=== PATIENT | female | born 1960 | race African-American/Black ===

== ENCOUNTER 2017-05-09 21:49 | Emergency (ER) | payer OTHER, MEDICAID ==
[~2017-05-09] VITALS: Ht 165.1 cm; Wt 81.6 kg
[2017-05-09 21:55] VITALS: BP 142/83
--- NOTE | 2017-05-09 22:08 | NUR ---
TO ER BED 6
--- NOTE | 2017-05-09 22:20 | NUR ---
Patient being evaluated by physician at bedside.
[2017-05-09] MEDS ORDERED: ALBUTEROL SULFATE/IPRATROPIU 3 ML SOL IH ONE (22:25)
[2017-05-09] MEDS ORDERED: methylPREDNISolone SS 125 MG/2 ML VIAL IVP ONE (22:30)
--- NOTE | 2017-05-09 22:30 | NUR ---
56Y/F PT. PRESENTS TO ED WITH C/O SOB ON AND OFF. HX. COPD, TODAY HAVING SOB AND WORSEN. AAO X4, AMBULATORY WITH STEADY GAIT. RESPIRATIONS ROOM AIR, EVEN AND UNLABORED. SHAKIRA WHEEZES. C/O BACK PAIN 04/24. VSS, ER MD MADE AWARE OF PT. STATUS.
[2017-05-09 22:57] LABS: HEMATOCRIT 32.1 % (36-48); HEMOGLOBIN 9.8 g/dL (12.0-16.0); MEAN CORPUSCULAR HEMOGLOBIN 20 pg (27-31); MEAN CORPUSCULAR HGB CONC 31 g/dL (33-37); MEAN CORPUSCULAR VOLUME 65 fL (80-94); PLATELET COUNT (AUTO) 346 K/uL (140-450); RED BLOOD CELL COUNT(AUTO) 4.92 MIL/uL (4.20-5.40); RED CELL DISTRIBUTION WIDTH 20.6 % (11.6-13.7)
[2017-05-09 23:04] LABS: EOSINOPHILS % (MANUAL) 3 % (0-4); LYMPHOCYTES % (MANUAL) 28 % (20-46); MONOCYTES % (MANUAL) 5 % (5-12)
--- NOTE | 2017-05-10 00:10 | NUR ---
Patient discharged with v/s stable. Written and verbal after care instructions given and explained. Patient verbalized understanding. Ambulatory with steady gait. All questions addressed prior to discharge. Advised to follow up with PMD.
[2017-05-10 00:13] VITALS: BP 140/81
== END 2017-05-10 00:10 | disposition home or self-care (01) ==
LOC: MED 22:37
DX: J44.9 Chronic obstructive pulmonary disease, unspecified (principal); Z88.5 Allergy status to narcotic agent
CPT/HCPCS: 36415; 71020; 85025; 94640; 96374; 99285; J2930; J7620